=== PATIENT | female | born 1975 | race Caucasian/White ===

== ENCOUNTER 2023-05-12 11:32 | Outpatient (CLI) | payer OTHER, SELFPAY ==
--- NOTE | 2023-05-12 11:46 | MM_ITS ---
WS: [email or web address] SCREENING DIGITAL BREAST TOMOSYNTHESIS MAMMOGRAM WITH CAD HISTORY: SCREENING COMPARISON: 03/21/2018 and 06/28/2017 Bilateral CC and MLO with tomosynthesis and synthetic mammography submitted. Computer aided detection analyzed. Breast composition: The breasts are extremely dense, which lowers the sensitivity of mammography. Ext remely dense breast. Bilateral partially posterior breast masses are identified. These are well-circu mscribed and probably cyst but need to be further evaluated by ultrasound. No distortion. IMPRESSION: MM/[place] [id number] BI-RADS: 0-Incomplete: Need additional imaging evaluation FOLLOW UP: Need Additional Imaging Bilateral breast ultrasound, limited. Right breast: Upper outer quadrant 9-12 o'clock. Evaluate for 2 masses with the largest measuring 16 mm. Left breast: Upper outer quadrant to include 11:00 also. Evaluate for 2 masses with the largest measuring 26 mm.
== END 2023-05-12 11:33 | disposition home or self-care (01) ==
LOC: RAD 11:38 → MOBLMAM 11:46
PROVIDERS: PCP Family Medicine; Visit Provider Family Medicine
DX: Z12.31 Encounter for screening mammogram for malignant neoplasm of breast (principal)
CPT/HCPCS: 77063; 77067

== ENCOUNTER 2023-06-27 11:28 | Outpatient (CLI) | payer OTHER, SELFPAY ==
--- NOTE | 2023-06-27 11:40 | US_ITS ---
WS: [email or web address] ULTRASOUND BILATERAL BREASTs HISTORY: ABNORMAL MAMMO COMPARISON: 05/12/2023 mammogram and prior breast ultrasound 11/25/2011 TECHNIQUE: 2-D and Doppler. RIGHT breast: Simple cyst at 11:00, 5 cm from the nipple measures 1.5 x 1.0 x 1.5 cm. There is an add itional solid mass at 10:00, 5 cm the nipple measuring 1.0 x 1.0 x 1.1 cm. This solid mass was also n oted on the ultrasound from 11/25/2011 without significant increase in size. LEFT breast: Solid mass at 1:00, 3 cm the nipple measures 2.5 x 1.2 x 2.6 cm. Mild increased vascular ity. This mass was also probably present on the prior ultrasound with slight decrease in size. There is an additional solid well-rounded mass at the 12:00, 3 cm from the nipple. This is probably a fibro adenoma measuring 1.5 x 1.2 x 1.6 cm. IMPRESSION: US/US breast BI limited* [id number] BI-RADS: 3-Probably Benign FOLLOW-UP: 6 Month Follow-up Recommend bilateral breast 6-month follow-up. Patient has multiple bilateral br east masses which have been previously described. There are both solid and cyst ic masses within each breast. These masses appear very similar to the examinati on from 2011. The quality of the ultrasound has much improved since 2011 making comparison difficult. I favor these are probably all benign masses which have been stable. Recommend 6-month ultrasound follow-up. If any of these masses kumar ear to progress clinically these can be reevaluated by ultrasound and/or possib le biopsy.
== END 2023-06-27 11:29 | disposition home or self-care (01) ==
PROVIDERS: PCP Family Medicine; Visit Provider Family Medicine
DX: R92.8 Other abnormal and inconclusive findings on diagnostic imaging of breast (principal); N63.11 Unspecified lump in the right breast, upper outer quadrant; N63.21 Unspecified lump in the left breast, upper outer quadrant
CPT/HCPCS: 76642

== ENCOUNTER 2024-01-24 08:50 | Outpatient (CLI) | payer OTHER, SELFPAY ==
--- NOTE | 2024-01-24 08:52 | US_ITS ---
WS: [email or web address] ULTRASOUND BILATERAL BREAST HISTORY: Follow-up. COMPARISON: Prior breast ultrasound 06/27/2023, 11/25/2011 and mammogram 05/12/2023 TECHNIQUE: 2-D and Doppler. RIGHT: Complex cyst 11:00 1.6 x 1.4 x 1.2 cm without significant increase in size. Additional hypoech oic mass appears more solid at 10:00, 5 cm from nipple measures 0.9 x 0.9 x 0.8 cm without change. Th is may be a fibroadenoma. LEFT: Complex cystic mass is ovoid at 1:00, 3 cm from nipple measuring 2.5 x 2.3 x 1.3 cm. Mass is si milar in size to the prior study. There is an additional hypoechoic mass at 12:00, 3 cm from the nipp le measuring 1.8 x 1.5 x 1.3 cm with slight increase in size. This is of solid mass. No through trans mission. IMPRESSION: US/US breast BI limited* [id number] BI-RADS: 3-Probably Benign FOLLOW-UP: 6 Month Follow-up Recommend continued yearly mammogram and 6-month follow-up of these breast mass es to demonstrate long-term stability. This should be followed every 6 months f or a total of 2 years to document long-term stability.
== END 2024-01-24 08:51 | disposition home or self-care (01) ==
LOC: RAD 08:50
PROVIDERS: PCP Family Medicine; Visit Provider Family Medicine
DX: R92.8 Other abnormal and inconclusive findings on diagnostic imaging of breast (principal); N60.02 Solitary cyst of left breast; N60.01 Solitary cyst of right breast
CPT/HCPCS: 76642

== ENCOUNTER → 2024-04-25 10:46 | Outpatient (BNVA) | payer OTHER, SELFPAY | PROVIDERS: PCP Family Medicine; Visit Provider Registered Nurse Neonatal Intensive Care | DX: R39.9 Unspecified symptoms and signs involving the genitourinary system (principal) | CPT/HCPCS: 81000 ==

== ENCOUNTER 2024-07-30 14:58 | Outpatient (CLI) | payer OTHER, SELFPAY ==
--- NOTE | 2024-07-30 | MM_ITS ---
WS: [email or web address] DIAGNOSTIC BILATERAL DIGITAL BREAST TOMOSYNTHESIS MAMMOGRAPHY WITH CAD Bilateral breast ultrasound, limited HISTORY: LUMP COMPARISON: 05/12/2023, 03/21/2018, 01/24/2024 and 11/25/2011, 06/27/2023 TECHNIQUE: Bilateral craniocaudad, mediolateral oblique, and mediolateral views are submitted with to mosynthesis and SM. Spot compression LEFT CC. Computer aided detection utilized. Breast composition: The breasts are heterogeneously dense, which may obscure small masses. There are numerous bilateral round, partially obscured indistinct masses within each breast that of b een previously described. Largest mass in the RIGHT breast is at a middle depth measuring 1.6 x 1.7 x 1.8 cm at 3:00. There are additional masses scattered throughout the breast. Numerous masses in the LEFT breast with partially obscured margins and the largest at 12:00 measures 1.8 x 1.8 x 2.1 cm. Thi s mass is slightly increased in size. Ultrasound will be performed at several locations within each Bilateral breast ultrasound, limited. RIGHT breast: Mass with through shadowing measuring 1.8 x 1.6 x 1.5 cm RIGHT breast 3:00 corresponds to the mammographic abnormality. There are low-level echoes within this mass. Additional scattered si milar masses which are smaller at 9, 10 and 11:00. LEFT breast: Solid ovoid mass at 1:00 measures 1.1 x 1.4 x 0.7 cm. Additional solid mass with no incr eased vascularity at 12:00 measures 1.8 x 1.6 x 1.6 cm. This mass was previously described. All of th vadim masses were present on prior studies. Some of increased slightly in size and some have decreased. The largest mass at 12:00 in the LEFT breast has been present since 2011. MM/MM diag BI tomosynthesis [id number] IMPRESSION: BI-RADS: 3 - Probably Benign FOLLOW UP: 6 Month Follow-up Recommended continued bilateral 6-month breast ultrasound evaluations for a tot al of 2 years.
--- NOTE | 2024-07-30 15:06 | US_ITS ---
WS: [email or web address] DIAGNOSTIC BILATERAL DIGITAL BREAST TOMOSYNTHESIS MAMMOGRAPHY WITH CAD Bilateral breast ultrasound, limited HISTORY: LUMP COMPARISON: 05/12/2023, 03/21/2018, 01/24/2024 and 11/25/2011, 06/27/2023 TECHNIQUE: Bilateral craniocaudad, mediolateral oblique, and mediolateral views are submitted with to mosynthesis and SM. Spot compression LEFT CC. Computer aided detection utilized. Breast composition: The breasts are heterogeneously dense, which may obscure small masses. There are numerous bilateral round, partially obscured indistinct masses within each breast that of b een previously described. Largest mass in the RIGHT breast is at a middle depth measuring 1.6 x 1.7 x 1.8 cm at 3:00. There are additional masses scattered throughout the breast. Numerous masses in the LEFT breast with partially obscured margins and the largest at 12:00 measures 1.8 x 1.8 x 2.1 cm. Thi s mass is slightly increased in size. Ultrasound will be performed at several locations within each Bilateral breast ultrasound, limited. RIGHT breast: Mass with through shadowing measuring 1.8 x 1.6 x 1.5 cm RIGHT breast 3:00 corresponds to the mammographic abnormality. There are low-level echoes within this mass. Additional scattered si milar masses which are smaller at 9, 10 and 11:00. LEFT breast: Solid ovoid mass at 1:00 measures 1.1 x 1.4 x 0.7 cm. Additional solid mass with no incr eased vascularity at 12:00 measures 1.8 x 1.6 x 1.6 cm. This mass was previously described. All of th vadim masses were present on prior studies. Some of increased slightly in size and some have decreased. The largest mass at 12:00 in the LEFT breast has been present since 2011. US/US breast BI complete [id number] IMPRESSION: BI-RADS: 3 - Probably Benign FOLLOW UP: 6 Month Follow-up Recommended continued bilateral 6-month breast ultrasound evaluations for a tot al of 2 years.
== END 2024-07-30 14:59 | disposition home or self-care (01) ==
LOC: RAD 14:59
PROVIDERS: PCP Family Medicine; Visit Provider Family Medicine
DX: N63.15 Unspecified lump in the right breast, overlapping quadrants (principal); N63.20 Unspecified lump in the left breast, unspecified quadrant; R92.323 Mammographic fibroglandular density, bilateral breasts; R92.8 Other abnormal and inconclusive findings on diagnostic imaging of breast
CPT/HCPCS: 76641; 77062; G0279

== ENCOUNTER 2025-03-19 12:58 | Outpatient (CLI) | payer OTHER, SELFPAY ==
--- NOTE | 2025-03-19 13:05 | US_ITS ---
WS: [email or web address] ULTRASOUND BILATERAL BREAST, limited HISTORY: ABNORMAL MAMMOGRAM, 6-month follow-up. COMPARISON: 07/30/2024, 01/24/2024 and 06/27/2023 TECHNIQUE: 2-D and Doppler. RIGHT breast: Reidentified are multiple cysts and minimally complex cystic masses within the RIGHT breast. Cyst noted at 3:00, 1 cm from the nipple, 1.0 x 1.0 x 0.8 cm. Complex cyst 3:00 2 cm from the nipple 0.9 x 1.0 x 0.7 cm. Simple cyst RIGHT breast 10:00 2 cm the nipple, 0.8 x 0.8 x 0.7 cm. Hypoechoic mass with low-level echoes 11:00, 2 cm from nipple 0.9 x 1.0 x 0.8 cm. LEFT breast: Hypoechoic mass at 1:00, 2 cm from nipple 1.1 x 1.2 x 0.7 cm. Cyst 6:00, 2 cm the nipple 1.0 x 1.1 x 0.9 cm. Small cyst LEFT breast 6:00 0.7 x 0.9 x 0.5 cm. Complex cystic mass with internal debris is noted at 12:00, 1 cm from the nipple measuring 1.8 x 1.7 x 1.5 cm. There is increasing cystic component now present with layering debris. The solid component is decreasing in the cystic component is increasing. The mass has not changed significantly in size itself. There is an adjacent vessel but there is no internal vascularity. US/US breast BI limited* [id number] IMPRESSION: BI-RADS: 3- Probably Benign FOLLOW-UP: 6 Month Follow-up Patient to return in July 2025 for annual mammogram. Additional ultrasound f ollow-up of the LEFT breast mass at 12:00, 1 cm from the nipple is recommended. Mass has remained the same size but there is increasing cystic component. The remaining masses are stable.
== END 2025-03-19 12:59 | disposition home or self-care (01) ==
LOC: RAD 13:00
PROVIDERS: PCP Family Medicine; Visit Provider Family Medicine
DX: N63.21 Unspecified lump in the left breast, upper outer quadrant (principal); N60.12 Diffuse cystic mastopathy of left breast; N60.11 Diffuse cystic mastopathy of right breast
CPT/HCPCS: 76642

== ENCOUNTER → 2025-05-22 08:14 | Outpatient (BNVA) | payer OTHER, SELFPAY | PROVIDERS: PCP Family Medicine; Visit Provider Podiatrist Foot & Ankle Surgery | DX: M79.671 Pain in right foot (principal); M20.21 Hallux rigidus, right foot | CPT/HCPCS: 73630 ==

== ENCOUNTER 2025-08-20 10:20 | Outpatient (CLI) | payer OTHER, SELFPAY ==
--- NOTE | 2025-08-20 10:27 | XRR_ITS ---
PROCEDURE INFORMATION: Exam: XR Chest Exam date and time: 08/20/2025 10:32 AM Age: 50 years old Clinical indication: Shortness of breath; Severe SOB and slight cough x2 days TECHNIQUE: Imaging protocol: Radiologic exam of the chest. Views: 2 views. COMPARISON: No relevant prior studies available. FINDINGS: Lungs: 1.4 x 1.1 cm nodule in the right upper lung just lateral and superior to the hilum. It may be calcified. Mild opacity in the lingula is suggested. Pleural spaces: Unremarkable. No pleural effusion. No pneumothorax. Heart/Mediastinum: Unremarkable. No cardiomegaly. Bones/joints: Unremarkable. XR/XR chest 2V* [id number] IMPRESSION: 1. 1.4 x 1.1 cm pulmonary nodule in the right lung. If there are remote chest radiographs or chest CT to establish long-term stability, they would be helpful. Otherwise, consider noncontrast chest CT. 2. Suggestion of possible mild atelectasis/opacity in the lingula.
== END 2025-08-20 10:21 | disposition home or self-care (01) ==
PROVIDERS: PCP Family Medicine; Visit Provider Nurse Practitioner
DX: R06.00 Dyspnea, unspecified (principal); R06.02 Shortness of breath; R91.1 Solitary pulmonary nodule; R91.8 Other nonspecific abnormal finding of lung field
CPT/HCPCS: 71046; 87400; 87426

== ENCOUNTER 2025-10-02 07:31 | Outpatient (CLI) | payer OTHER, SELFPAY ==
--- NOTE | 2025-10-02 07:36 | CTR_ITS ---
PROCEDURE INFORMATION: Exam: CT Chest Without Contrast; Diagnostic Exam date and time: 10/02/2025 7:41 AM Age: 50 years old Clinical indication: Condition or disease; Lung condition and disease; Pulmonary nodule, solitary; Additional info: Solitary pulmonary nodule TECHNIQUE: Imaging protocol: Diagnostic computed tomography of the chest without contrast. Radiation optimization: All CT scans at this facility use at least one of these dose optimization techniques: automated exposure control; mA and/or kV adjustment per patient size (includes targeted exams where dose is matched to clinical indication); or iterative reconstruction. COMPARISON: CR XR chest 2V* [id number] 08/20/2025 10:32 AM RADIATION DOSE METRICS: Total DLP (mGy-cm): 327.73 FINDINGS: Lungs: No suspicious pulmonary nodule. Bilateral calcific granulomas. Pleural spaces: No pneumothorax. No pleural effusion. Heart: Within normal limits. Lymph nodes: Calcified lymph nodes are seen suggesting prior granulomatous disease. Vasculature: Nonaneurysmal thoracic aorta. No coronary artery calcification. Spleen: Splenic calcifications. Bones/joints: Within normal limits. Soft tissues: Bilateral breast lesions including a rounded complex attenuating 14 mm left breast lesion on image 21 of series 3. Other findings: Bilateral calcific granulomas. CT/CT chest wo con [id number] IMPRESSION: Pulmonary nodule in question corresponds to a calcific granuloma. Bilateral breast lesions; correlate with mammography.
== END 2025-10-02 07:32 | disposition home or self-care (01) ==
PROVIDERS: PCP Family Medicine; Visit Provider Family Medicine
DX: R91.1 Solitary pulmonary nodule (principal); D73.9 Disease of spleen, unspecified; N64.89 Other specified disorders of breast
CPT/HCPCS: 71250